=== PATIENT | male | born 1995 | race Hispanic/Latino ===

== ENCOUNTER 2021-05-04 13:18 | Emergency (ER) | payer OTHER ==
[~2021-05-04] VITALS: Ht 177.8 cm; Wt 88.6 kg
[2021-05-04 13:19] VITALS: BP 130/78
[2021-05-04] MEDS ORDERED: BACI500O21 TOP (17:40)
== END 2021-05-04 18:02 | disposition home or self-care (01) ==
LOC: M ED 13:18
DX: S90.822A Blister (nonthermal), left foot, initial encounter (principal); S90.821A Blister (nonthermal), right foot, initial encounter; X50.3XXA Overexertion from repetitive movements, initial encounter; Y92.9 Unspecified place or not applicable; Y93.01 Activity, walking, marching and hiking; Y99.1 Military activity